=== PATIENT | female | born 1995 | race Caucasian/White ===

== ENCOUNTER 2019-02-10 04:49 | Emergency (ER) | payer SELFPAY ==
[2019-02-10 04:53] VITALS: BP 152/88; PULSE 81; RESP 16; TEMP 37; O2SAT 98; BMI 24.3
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
[2019-02-10 04:59] VITALS: BP 131/84; PULSE 83; RESP 16; O2SAT 97
== END 2019-02-10 05:58 | disposition home or self-care (01) ==
PROVIDERS: Emergency Provider Emergency Medicine
DX: I10 Essential (primary) hypertension (principal)
CPT/HCPCS: 99284